=== PATIENT | male | born 1985 | race Caucasian/White ===

== ENCOUNTER 2024-08-02 16:18 | Outpatient (RCR) | payer BC, SELFPAY | END 2024-08-02 23:59 | disposition home or self-care (01) | LOC: RPT 16:18 | PROVIDERS: ATTENDING PHYSICIAN Physician Assistant Surgical | DX: M54.16 Radiculopathy, lumbar region (principal); M54.50 Low back pain, unspecified; M51.360 Other intervertebral disc degeneration, lumbar region with discogenic back pain only; Z73.6 Limitation of activities due to disability | CPT/HCPCS: 97110; 97112; 97161 ==

== ENCOUNTER → 2025-01-01 12:41 | Outpatient (REF) | payer BC, SELFPAY | LOC: DHSLP 12:41 | PROVIDERS: ATTENDING PHYSICIAN Internal Medicine Endocrinology, Diabetes & Metabolism | DX: G47.33 Obstructive sleep apnea (adult) (pediatric) (principal); R40.0 Somnolence; R06.83 Snoring; E66.9 Obesity, unspecified; Z68.43 Body mass index [BMI] 50.0-59.9, adult | CPT/HCPCS: 95810 ==